=== PATIENT | male | born 1960 | race African-American/Black ===

== ENCOUNTER 2018-06-29 17:12 | Inpatient (IN) | payer MEDICARE, MEDICAID ==
[~2018-06-29] VITALS: Ht 170.2 cm; Wt 68.0 kg
[~2018-06-29 17:12] MED LIST: ACET-2247 PO; CLON.5 PO; COGENTIN PO; DIVA-76 PO; DIVA-78 PO; DSS100 PO; LACT30L PO; MOM30 PO; MULT-68 PO; PARO10TA89 PO; QUET25TA PO; RISP2 PO; SENNA PO; [UNRECOGNIZED DRUG - CODE]
[2018-06-29] MEDS ORDERED: TAMS-1 PO (18:37)
[2018-06-29] MEDS ORDERED: QUET25TA PO ×2 (18:37)
[2018-06-29] MEDS ORDERED: RISP1 PO (18:37)
[2018-06-29] MEDS ORDERED: DSS100 PO (18:37)
[2018-06-29] MEDS ORDERED: LISI-661 PO (18:37)
[2018-06-29] MEDS ORDERED: MULT-248 PO (18:37)
[2018-06-29] MEDS ORDERED: SENN-176 PO (18:37)
[2018-06-29] MEDS ORDERED: FERR-89 PO (18:37)
[2018-06-29] MEDS ORDERED: CLON.5 PO (18:37)
[2018-06-29] MEDS ORDERED: QUET300T2 PO (18:37)
[2018-06-29] MEDS ORDERED: HALO5I IM (18:37)
[2018-06-29] MEDS ORDERED: AMLO-512 PO (18:37)
[2018-06-29] MEDS ORDERED: FINA5TAB41 PO (18:37)
[2018-06-29] MEDS ORDERED: OXCA300T29 PO (18:37)
[2018-06-29] MEDS ORDERED: PANT40TA25 PO (18:37)
[2018-06-29] MEDS ORDERED: HALOPERIDOL LACTATE 5 MG/ML VIAL IM ONE (18:45)
[2018-06-29] MEDS ORDERED: LORazepam 2 MG/ML VIAL IM ONE (18:45)
[2018-06-29] MEDS ORDERED: DiphenhydrAMINE HCL 50 MG/ML VIAL IM ONE (18:45)
[2018-06-29] MEDS ORDERED: HALOPERIDOL 5 MG TABLET PO PRN (20:00)
[2018-06-29] MEDS ORDERED: LORazepam 2 MG TABLET PO PRN (20:00)
[2018-06-29] MEDS ORDERED: ZOLPIDEM TARTRATE 10 MG TABLET PO PRN (20:00)
[2018-06-29 21:13] LABS: BASOPHILS % (AUTO) 0.9 % (0.0-2.0); EOSINOPHILS % (AUTO) 1.3 % (1.0-6.0); HEMOGLOBIN 8.8 g/dL (13.5-17.5); LYMPHOCYTES # (AUTO) 2.7 K/uL (1.0-4.8); LYMPHOCYTES % (AUTO) 28.4 % (22.0-44.0); MEAN CORPUSCULAR HEMOGLOBIN 25.1 pg (26.0-34.0); MEAN CORPUSCULAR HGB CONC 32.5 G/dL (31.0-37.0); MEAN CORPUSCULAR VOLUME 77 fL (80-100); MONOCYTES # (AUTO) 1.6 K/uL (0.1-1.0); MONOCYTES % (AUTO) 16.6 % (2.0-9.0); NEUTROPHILS % (AUTO) 52.8 % (40.0-70.0); PLATELET COUNT (AUTO) 243 K/uL (150-450); RED BLOOD CELL COUNT(AUTO) 3.49 MIL/uL (4.50-5.90); RED CELL DISTRIBUTION WIDTH 15.3 % (11.5-14.5)
[2018-06-29 21:42] LABS: ALANINE AMINOTRANSFERASE 26 U/L (12-78); ALBUMIN 2.9 g/dL (3.4-5.0); ALKALINE PHOSPHATASE 73 U/L (46-116); ANION GAP 12 mmol/L (8-16); ASPARTATE AMINOTRANSFERASE 23 U/L (15-37); BILIRUBIN,TOTAL 0.5 mg/dL (0.1-1.0); CALCIUM, TOTAL 9.1 mg/dL (8.8-10.5); CARBON DIOXIDE 22 mmol/L (22-29); CHLORIDE 101 mmol/L (98-107); CHOL/HDL RATIO 2.2 (4.2-7.3); CHOLESTEROL 104 mg/dL (131-200); CREATININE 1.05 mg/dL (0.60-1.30); FREE T4 (FREE THYROXINE) 1.05 ng/dL (0.76-1.46); GLOMERULAR FILTR. RATE CALC > 60 mL/min (>60); HDL CHOLESTEROL 47 mg/dL (40-60); LDL CHOL (CALC.) 48 mg/dL (0-130); POTASSIUM 3.7 mmol/L (3.5-5.1); SODIUM SERUM 135 mmol/L (136-145); THYROID STIMULATING HORMONE 0.31 uIU/mL (0.36-3.74); TOTAL PROTEIN, SERUM 6.2 g/dL (6.4-8.2); TRIGLYCERIDES 43 mg/dL (15-150); UREA NITROGEN, BLOOD 15 mg/dL (7-18)
[2018-06-29 21:44] LABS: GLUCOSE,RANDOM 46 mg/dL (70-110)
[2018-06-29] MEDS ORDERED: DEXTROSE 50%-WATER 25 GM/50 ML SYRINGE IVP ONE (22:00)
[2018-06-29 23:02] LABS: GLUCOSE,POINT OF CARE 70 MG/DL (70-110)
[2018-06-29 23:44] LABS: GLUCOSE,POINT OF CARE 137 MG/DL (70-110)
[2018-06-30 01:10] VITALS: BP 141/70
[2018-06-30] MEDS ORDERED: PNEUMOCOCCAL VACCINE POLYVALENT 0.5 ML VIAL [PPSV23] IM ONE (01:15)
[2018-06-30] MEDS ORDERED: MAGNESIUM HYDROXIDE SUSPENSION 30 ML UDCUP PO PRN (06:45)
[2018-06-30] MEDS ORDERED: IBUPROFEN 600 MG TABLET PO PRN (06:45)
[2018-06-30] MEDS ORDERED: ONDANSETRON HCL 4 MG TABLET PO PRN (06:45)
[2018-06-30] MEDS ORDERED: MAG HYDROX/AL HYDROX/SIMETH ES 30 ML SUSPENSION UDCUP PO PRN (06:45)
[2018-06-30] MEDS ORDERED: ACETAMINOPHEN 325 MG TABLET PO PRN (06:45)
[2018-06-30] MEDS ORDERED: LOPERAMIDE HCL 2 MG CAPSULE PO PRN (06:45)
[2018-06-30] MEDS ORDERED: DEXTROSE 50%-WATER 25 GM/50 ML SYRINGE IVP PRN (06:45)
[2018-06-30] MEDS ORDERED: BACITRACIN 28.4 GM OINTMENT TP PRN (06:45)
[2018-06-30] MEDS ORDERED: BENZOCAINE/MENTHOL LOZENGE MM PRN (06:45)
[2018-06-30] MEDS ORDERED: PETROLATUM,WHITE 71 GM JELLY TP PRN (06:45)
[2018-06-30] MEDS ORDERED: ALBUTEROL SULFATE HFA 90 MCG/PUFF 8 GM INHALER IH PRN (06:45)
[2018-06-30] MEDS ORDERED: CloNIDine HCL 0.1 MG TABLET PO PRN (06:45)
[2018-06-30] MEDS: FERROUS SULFATE 325 MG EC TABLET PO SCH (07:30)
[2018-06-30 08:00] VITALS: BP 134/68
[2018-06-30] MEDS: FINASTERIDE 5 MG TABLET PO SCH (09:00)
[2018-06-30] MEDS: DOCUSATE SODIUM 100 MG CAPSULE PO SCH (09:00)
[2018-06-30] MEDS: TAMSULOSIN HCL 0.4 MG CAPSULE PO SCH (09:00)
[2018-06-30] MEDS: AmLODIPine BESYLATE 10 MG TABLET PO SCH (09:00)
[2018-06-30] MEDS: OMEPRAZOLE 20 MG CAPSULE PO SCH (09:00)
[2018-06-30] MEDS: MULTIVITAMINS WITH MINERALS, THERAPEUTIC TABLET PO SCH (09:00)
[2018-06-30] MEDS: LISINOPRIL 10 MG TABLET PO SCH (09:02)
[2018-06-30] MEDS: SENNA 187 MG TABLET PO SCH (09:03)
[2018-06-30] MEDS: QUEtiapine FUMARATE 100 MG TABLET PO SCH ×2 (10:00→16:38)
[2018-06-30] MEDS: OXcarbazepine 300 MG TABLET PO SCH ×3 (13:00→21:36)
[2018-06-30 16:55] VITALS: BP 102/76
[2018-06-30] MEDS ORDERED: LORazepam 2 MG/ML VIAL ONE (19:49)
[2018-06-30] MEDS ORDERED: DiphenhydrAMINE HCL 50 MG/ML VIAL IM ONE (20:00)
[2018-06-30] MEDS ORDERED: LORazepam 2 MG/ML VIAL IM ONE (20:00)
[2018-06-30] MEDS ORDERED: HALOPERIDOL LACTATE 5 MG/ML VIAL IM ONE (20:00)
[2018-06-30] MEDS: QUEtiapine FUMARATE 300 MG TABLET PO SCH ×2 (20:51→21:31)
[2018-07-01] MEDS: FERROUS SULFATE 325 MG EC TABLET PO SCH (06:41)
[2018-07-01] MEDS: QUEtiapine FUMARATE 100 MG TABLET PO SCH ×3 (08:00→17:10)
[2018-07-01] MEDS: LISINOPRIL 10 MG TABLET PO SCH (09:00)
[2018-07-01] MEDS: AmLODIPine BESYLATE 10 MG TABLET PO SCH (09:00)
[2018-07-01] MEDS: OXcarbazepine 300 MG TABLET PO SCH ×3 (09:00→17:09)
[2018-07-01] MEDS: DOCUSATE SODIUM 100 MG CAPSULE PO SCH (09:00)
[2018-07-01] MEDS: FINASTERIDE 5 MG TABLET PO SCH (09:00)
[2018-07-01] MEDS: SENNA 187 MG TABLET PO SCH (09:00)
[2018-07-01] MEDS: OMEPRAZOLE 20 MG CAPSULE PO SCH (09:00)
[2018-07-01] MEDS: TAMSULOSIN HCL 0.4 MG CAPSULE PO SCH (09:00)
[2018-07-01] MEDS: MULTIVITAMINS WITH MINERALS, THERAPEUTIC TABLET PO SCH (09:00)
[2018-07-01] MEDS: SODIUM CHLORIDE 1 GM TABLET PO SCH ×3 (09:00→17:09)
[2018-07-01] MEDS ORDERED: HALOPERIDOL LACTATE 5 MG/ML VIAL IM SCH (12:15)
[2018-07-01 16:15] VITALS: BP 100/58
[2018-07-01] MEDS: MUPIROCIN CALCIUM 2% 22 GM OINTMENT NASAL SCH (17:10)
[2018-07-01 17:13] LABS: GLUCOMETER DEV NAME(LOC) 3E.C; GLUCOSE,POINT OF CARE 99 MG/DL (70-110)
[2018-07-01] MEDS: QUEtiapine FUMARATE 300 MG TABLET PO SCH (21:50)
[2018-07-02] MEDS: FERROUS SULFATE 325 MG EC TABLET PO SCH (06:40)
[2018-07-02] MEDS: TAMSULOSIN HCL 0.4 MG CAPSULE PO SCH (08:11)
[2018-07-02] MEDS: OMEPRAZOLE 20 MG CAPSULE PO SCH (08:11)
[2018-07-02] MEDS: FINASTERIDE 5 MG TABLET PO SCH (08:11)
[2018-07-02] MEDS: DOCUSATE SODIUM 100 MG CAPSULE PO SCH (08:11)
[2018-07-02] MEDS: AmLODIPine BESYLATE 10 MG TABLET PO SCH (08:11)
[2018-07-02] MEDS: MUPIROCIN CALCIUM 2% 22 GM OINTMENT NASAL SCH ×3 (08:11→18:03)
[2018-07-02] MEDS: SENNA 187 MG TABLET PO SCH (08:11)
[2018-07-02] MEDS: MULTIVITAMINS WITH MINERALS, THERAPEUTIC TABLET PO SCH (08:12)
[2018-07-02] MEDS: QUEtiapine FUMARATE 100 MG TABLET PO SCH ×2 (08:12→18:03)
[2018-07-02] MEDS: OXcarbazepine 300 MG TABLET PO SCH ×3 (08:12→18:03)
[2018-07-02] MEDS: LISINOPRIL 10 MG TABLET PO SCH (08:13)
[2018-07-02 16:22] VITALS: BP 134/91
[2018-07-02 16:58] LABS: GLUCOMETER DEV NAME(LOC) 3E.C; GLUCOSE,POINT OF CARE 145 MG/DL (70-110)
[2018-07-02] MEDS: INSULIN LISPRO 100 UNITS/ML SQ PRN (16:58)
[2018-07-02] MEDS: QUEtiapine FUMARATE 300 MG TABLET PO SCH (20:02)
[2018-07-02 20:58] LABS: GLUCOMETER DEV NAME(LOC) 3E.C; GLUCOSE,POINT OF CARE 116 MG/DL (70-110)
[2018-07-03 06:09] LABS: GLUCOMETER DEV NAME(LOC) 3E.C; GLUCOSE,POINT OF CARE 70 MG/DL (70-110)
[2018-07-03] MEDS: FERROUS SULFATE 325 MG EC TABLET PO SCH (07:00)
[2018-07-03] MEDS: QUEtiapine FUMARATE 100 MG TABLET PO SCH ×2 (07:42→16:23)
[2018-07-03] MEDS: DOCUSATE SODIUM 100 MG CAPSULE PO SCH (07:43)
[2018-07-03] MEDS: OMEPRAZOLE 20 MG CAPSULE PO SCH (07:43)
[2018-07-03] MEDS: MUPIROCIN CALCIUM 2% 22 GM OINTMENT NASAL SCH ×2 (07:43→17:00)
[2018-07-03] MEDS: TAMSULOSIN HCL 0.4 MG CAPSULE PO SCH (07:43)
[2018-07-03] MEDS: FINASTERIDE 5 MG TABLET PO SCH (07:43)
[2018-07-03] MEDS: AmLODIPine BESYLATE 10 MG TABLET PO SCH (07:43)
[2018-07-03] MEDS: LISINOPRIL 10 MG TABLET PO SCH (07:44)
[2018-07-03] MEDS: OXcarbazepine 300 MG TABLET PO SCH ×3 (07:44→16:23)
[2018-07-03] MEDS: SENNA 187 MG TABLET PO SCH (07:44)
[2018-07-03] MEDS: MULTIVITAMINS WITH MINERALS, THERAPEUTIC TABLET PO SCH (07:44)
[2018-07-03 08:00] VITALS: BP 111/60
[2018-07-03 16:29] LABS: GLUCOMETER DEV NAME(LOC) 3E.C; GLUCOSE,POINT OF CARE 86 MG/DL (70-110)
[2018-07-03 16:52] VITALS: BP 120/68
[2018-07-03] MEDS: QUEtiapine FUMARATE 300 MG TABLET PO SCH (20:13)
[2018-07-03 20:58] LABS: GLUCOMETER DEV NAME(LOC) 3E.C; GLUCOSE,POINT OF CARE 104 MG/DL (70-110)
[2018-07-04 05:48] LABS: GLUCOMETER DEV NAME(LOC) 3E.C; GLUCOSE,POINT OF CARE 90 MG/DL (70-110)
[2018-07-04] MEDS: FERROUS SULFATE 325 MG EC TABLET PO SCH (06:38)
[2018-07-04] MEDS: OXcarbazepine 300 MG TABLET PO SCH ×3 (07:30→16:15)
[2018-07-04] MEDS: FINASTERIDE 5 MG TABLET PO SCH (07:30)
[2018-07-04] MEDS: SENNA 187 MG TABLET PO SCH (07:30)
[2018-07-04] MEDS: MULTIVITAMINS WITH MINERALS, THERAPEUTIC TABLET PO SCH (07:30)
[2018-07-04] MEDS: TAMSULOSIN HCL 0.4 MG CAPSULE PO SCH (07:30)
[2018-07-04] MEDS: LISINOPRIL 10 MG TABLET PO SCH (07:30)
[2018-07-04] MEDS: OMEPRAZOLE 20 MG CAPSULE PO SCH (07:30)
[2018-07-04] MEDS: QUEtiapine FUMARATE 100 MG TABLET PO SCH ×2 (07:30→16:15)
[2018-07-04] MEDS: AmLODIPine BESYLATE 10 MG TABLET PO SCH (07:30)
[2018-07-04] MEDS: DOCUSATE SODIUM 100 MG CAPSULE PO SCH (07:31)
[2018-07-04] MEDS: MUPIROCIN CALCIUM 2% 22 GM OINTMENT NASAL SCH ×2 (07:34→16:15)
[2018-07-04 08:00] VITALS: BP 134/61
[2018-07-04 16:23] LABS: GLUCOMETER DEV NAME(LOC) 3E.C; GLUCOSE,POINT OF CARE 86 MG/DL (70-110)
[2018-07-04 17:00] VITALS: BP 128/64
[2018-07-04] MEDS: QUEtiapine FUMARATE 300 MG TABLET PO SCH (20:02)
[2018-07-04 20:09] LABS: GLUCOMETER DEV NAME(LOC) 3E.C; GLUCOSE,POINT OF CARE 81 MG/DL (70-110)
[2018-07-05 06:29] LABS: GLUCOMETER DEV NAME(LOC) 3E.C; GLUCOSE,POINT OF CARE 87 MG/DL (70-110)
[2018-07-05] MEDS: FERROUS SULFATE 325 MG EC TABLET PO SCH (06:40)
[2018-07-05 08:00] VITALS: BP 106/52
[2018-07-05] MEDS: OMEPRAZOLE 20 MG CAPSULE PO SCH (08:25)
[2018-07-05] MEDS: OXcarbazepine 300 MG TABLET PO SCH ×3 (08:25→16:28)
[2018-07-05] MEDS: DOCUSATE SODIUM 100 MG CAPSULE PO SCH (08:25)
[2018-07-05] MEDS: QUEtiapine FUMARATE 100 MG TABLET PO SCH ×2 (08:25→16:27)
[2018-07-05] MEDS: MULTIVITAMINS WITH MINERALS, THERAPEUTIC TABLET PO SCH (08:26)
[2018-07-05] MEDS: SENNA 187 MG TABLET PO SCH (08:26)
[2018-07-05] MEDS: FINASTERIDE 5 MG TABLET PO SCH (08:26)
[2018-07-05] MEDS: TAMSULOSIN HCL 0.4 MG CAPSULE PO SCH (08:27)
[2018-07-05] MEDS: LISINOPRIL 10 MG TABLET PO SCH (08:33)
[2018-07-05] MEDS: AmLODIPine BESYLATE 10 MG TABLET PO SCH (08:33)
[2018-07-05] MEDS: MUPIROCIN CALCIUM 2% 22 GM OINTMENT NASAL SCH ×2 (08:34→17:05)
[2018-07-05] MEDS ORDERED: QUET100T PO (14:16)
[2018-07-05] MEDS ORDERED: MUPI1OIN5 NASAL (14:29)
[2018-07-05] MEDS ORDERED: OMEP20 PO (14:29)
[2018-07-05 16:33] LABS: GLUCOMETER DEV NAME(LOC) 3E.C; GLUCOSE,POINT OF CARE 106 MG/DL (70-110)
[2018-07-05] MEDS: QUEtiapine FUMARATE 300 MG TABLET PO SCH (20:11)
[2018-07-05 20:19] LABS: GLUCOMETER DEV NAME(LOC) 3E.C; GLUCOSE,POINT OF CARE 92 MG/DL (70-110)
[2018-07-06 06:24] LABS: GLUCOMETER DEV NAME(LOC) 3E.C; GLUCOSE,POINT OF CARE 92 MG/DL (70-110)
[2018-07-06] MEDS: INSULIN LISPRO 100 UNITS/ML SQ PRN (06:54)
[2018-07-06] MEDS: FERROUS SULFATE 325 MG EC TABLET PO SCH (07:19)
[2018-07-06] MEDS: TAMSULOSIN HCL 0.4 MG CAPSULE PO SCH (08:02)
[2018-07-06] MEDS: OXcarbazepine 300 MG TABLET PO SCH ×2 (08:02→12:26)
[2018-07-06] MEDS: QUEtiapine FUMARATE 100 MG TABLET PO SCH (08:02)
[2018-07-06] MEDS: AmLODIPine BESYLATE 10 MG TABLET PO SCH (08:02)
[2018-07-06] MEDS: LISINOPRIL 10 MG TABLET PO SCH (08:02)
[2018-07-06] MEDS: MULTIVITAMINS WITH MINERALS, THERAPEUTIC TABLET PO SCH (08:02)
[2018-07-06] MEDS: DOCUSATE SODIUM 100 MG CAPSULE PO SCH (08:02)
[2018-07-06] MEDS: SENNA 187 MG TABLET PO SCH (08:03)
[2018-07-06] MEDS: OMEPRAZOLE 20 MG CAPSULE PO SCH (08:03)
[2018-07-06] MEDS: FINASTERIDE 5 MG TABLET PO SCH (08:03)
[2018-07-06] MEDS: MUPIROCIN CALCIUM 2% 22 GM OINTMENT NASAL SCH (08:10)
[2018-07-06 09:17] VITALS: BP 123/90
== END 2018-07-06 14:05 | DRG 885 ==
LOC: EMS 17:14 → 3EC 23:30
DX: F20.0 Paranoid schizophrenia (principal); E87.1 Hypo-osmolality and hyponatremia; Z90.49 Acquired absence of other specified parts of digestive tract; D64.9 Anemia, unspecified; G40.909 Epilepsy, unspecified, not intractable, without status epilepticus; K21.9 Gastro-esophageal reflux disease without esophagitis; N40.0 Benign prostatic hyperplasia without lower urinary tract symptoms; I10 Essential (primary) hypertension
CPT/HCPCS: 83036; 84295; 84439; 84443; 87081; 96372; G0480; J1200; J1630; J2060

== ENCOUNTER 2018-07-30 12:37 | Emergency (ER) | payer MEDICARE, OTHER ==
[~2018-07-30] VITALS: Ht 167.6 cm; Wt 70.0 kg
[~2018-07-30 12:37] MED LIST changes: -ACET-2247 PO; +AMLO-512 PO; -CLON.5 PO; -COGENTIN PO; -DIVA-76 PO; -DIVA-78 PO; +FERR-89 PO; +FINA5TAB41 PO; -LACT30L PO; +LISI-661 PO; -MOM30 PO; +MULT-248 PO; -MULT-68 PO; +MUPI1OIN5 NASAL; +OMEP20 PO; +OXCA300T29 PO; -PARO10TA89 PO; +QUET100T PO; -QUET25TA PO; +QUET300T2 PO; -RISP2 PO; +SENN-176 PO; -SENNA PO; +TAMS-1 PO; -[UNRECOGNIZED DRUG - CODE]
[2018-07-30] MEDS ORDERED: HALO50VI4 IM (13:10)
[2018-07-30] MEDS ORDERED: CLON.5 PO (13:10)
[2018-07-30 15:41] LABS: BASOPHILS % (AUTO) 0.7 % (0.0-2.0); EOSINOPHILS % (AUTO) 0.3 % (1.0-6.0); HEMATOCRIT 28.6 % (41-53); LYMPHOCYTES # (AUTO) 2.3 K/uL (1.0-4.8); LYMPHOCYTES % (AUTO) 15.4 % (22.0-44.0); MEAN CORPUSCULAR HEMOGLOBIN 24.3 pg (26.0-34.0); MEAN CORPUSCULAR HGB CONC 31.6 G/dL (31.0-37.0); MEAN CORPUSCULAR VOLUME 77 fL (80-100); MONOCYTES # (AUTO) 1.9 K/uL (0.1-1.0); MONOCYTES % (AUTO) 12.8 % (2.0-9.0); NEUTROPHILS # (AUTO) 10.4 K/uL (1.8-7.7); NEUTROPHILS % (AUTO) 70.8 % (40.0-70.0); PLATELET COUNT (AUTO) 308 K/uL (150-450); RED BLOOD CELL COUNT(AUTO) 3.73 MIL/uL (4.50-5.90)
[2018-07-30 16:09] LABS: ANION GAP 9 mmol/L (8-16); CARBON DIOXIDE 24 mmol/L (22-29); CHLORIDE 106 mmol/L (98-107); CREATININE 1.01 mg/dL (0.60-1.30); GLOMERULAR FILTR. RATE CALC > 60 mL/min (>60); GLUCOSE,RANDOM 86 mg/dL (70-110); POTASSIUM 3.9 mmol/L (3.5-5.1); SODIUM SERUM 139 mmol/L (136-145); UREA NITROGEN, BLOOD 27 mg/dL (7-18)
[2018-07-30 16:15] LABS: ALANINE AMINOTRANSFERASE 52 U/L (12-78); ALBUMIN 3.3 g/dL (3.4-5.0); ALKALINE PHOSPHATASE 92 U/L (46-116); ASPARTATE AMINOTRANSFERASE 120 U/L (15-37); BILIRUBIN,TOTAL 0.7 mg/dL (0.1-1.0); TOTAL PROTEIN, SERUM 6.9 g/dL (6.4-8.2)
[2018-07-30 18:19] VITALS: BP 126/77
== END 2018-07-30 20:49 | disposition home or self-care (01) ==
LOC: EMS 12:39
DX: F25.9 Schizoaffective disorder, unspecified (principal); F32.9 Major depressive disorder, single episode, unspecified; K21.9 Gastro-esophageal reflux disease without esophagitis; Z79.899 Other long term (current) drug therapy
CPT/HCPCS: 36415; 80053; 85025; 99284; G0480